=== PATIENT | female | born 1970 | race Caucasian/White ===

== ENCOUNTER 2016-12-09 16:34 | Emergency (ER) | payer BC ==
[2016-12-09] MEDS ORDERED: ABILIFY5 M1 PO (16:56)
[2016-12-09] MEDS ORDERED: LEXAPRO20 M2 PO (16:56)
[2016-12-09] MEDS ORDERED: TEGRETOL200 M1 PO (16:57)
== END 2016-12-09 20:12 ==
LOC: EDMED 16:34
DX: G43.909 Migraine, unspecified, not intractable, without status migrainosus (principal); G50.0 Trigeminal neuralgia; F17.210 Nicotine dependence, cigarettes, uncomplicated
CPT/HCPCS: J1200; J1885; J2270; J2405; J2765; J7030